=== PATIENT | female | born 1995 | race Two or more races ===

== ENCOUNTER 2017-07-21 00:25 | Inpatient (IN) | payer BC ==
[2017-07-21 02:07] LABS: ADD UMIC NO; UR ASCORBIC ACID NEGATIVE (NEGATIVE); UR BILIRUBIN (Dip) NEGATIVE (NEGATIVE); UR BLOOD (Dip) NEGATIVE (NEGATIVE); UR CLARITY CLEAR (CLEAR); UR COLOR YELLOW (YELLOW); UR GLUCOSE (Dip) NEGATIVE (NEGATIVE); UR KETONES (Dip) TRACE mg/dL (NEGATIVE); UR LEUKOCYTE ESTERASE (Dip) NEGATIVE Leu/ul (NEGATIVE); UR NITRITE (Dip) NEGATIVE (NEGATIVE); UR SPECIFIC GRAVITY (Dip) 1.017 (1.003-1.030); UR TOTAL PROTEIN (Dip) NEGATIVE (NEGATIVE); UR UROBILINOGEN (Dip) NEGATIVE (NEGATIVE)
[2017-07-21 02:50] LABS: RUPTURE FETAL MEMBRANES POSITIVE (NEGATIVE)
[2017-07-21 02:50] LABS: ADD MAN DIFF? NO
[2017-07-21 02:53] LABS: WHITE BLOOD COUNT 16.7 10^3/ul (4.8-10.8)
[2017-07-21 02:53] LABS: BASOPHILS % 0.2 % (0.0-2.0); EOSINOPHILS % 0.1 % (0.0-7.0); HEMATOCRIT 38.8 % (37.0-47.0); HEMOGLOBIN 13.7 g/dl (12.0-16.0); LYMPHOCYTES # 2.7 10^3/ul (0.8-2.9); LYMPHOCYTES % 16.2 % (15.0-51.0); MEAN CORPUSCULAR HEMOGLOBIN 32.9 pg (29.0-33.0); MEAN CORPUSCULAR HGB CONC 35.3 g/dl (32.0-37.0); MONOCYTES % 5.9 % (0.0-11.0); NEUTROPHIL # 12.9 10^3/ul (1.6-7.5); NEUTROPHILS % 77.2 % (39.0-77.0); PLATELET COUNT 237 10^3/UL (140-415); RED BLOOD COUNT 4.17 10^6/ul (4.20-5.40); RED CELL DISTRIBUTION WIDTH 13.4 % (11.5-14.5)
[2017-07-21] MEDS ORDERED: MISOPROSTOL 200 MCG TAB PR ×2 (03:00→12:30)
[2017-07-21] MEDS ORDERED: CARBOPROST 250 MCG INJ IM ×2 (03:00→12:30)
[2017-07-21] MEDS ORDERED: OXYTOCIN 30 UNITS/LR 500 ML IV ×3 (03:00→12:30)
[2017-07-21] MEDS ORDERED: METHYLERGONOVINE 0.2 MG INJ IM ×2 (03:00→12:30)
[2017-07-21 03:13] LABS: INR 0.89; PROTIME 12.1 Sec (11.9-14.9); PT RATIO 0.9
[2017-07-21 03:14] LABS: ALANINE AMINOTRANSFERASE 20 IU/L (13-69); ALBUMIN 4.1 g/dl (3.3-4.9); ALKALINE PHOSPHATASE 228 IU/L (42-121); ANION GAP 18 (8-16); ASPARTATE AMINO TRANSFERASE 19 IU/L (15-46); BILIRUBIN,INDIRECT 0.2 mg/dl (0-1.1); BILIRUBIN,TOTAL 0.2 mg/dl (0.2-1.3); BLOOD UREA NITROGEN 6 mg/dl (7-20); CALCIUM 9.6 mg/dl (8.4-10.2); CARBON DIOXIDE 20 mmol/L (21-31); CHLORIDE 108 mmol/L (97-110); CREATININE 0.57 mg/dl (0.44-1.00); GLUCOSE 95 mg/dl (70-220); PARTIAL THROMBOPLASTIN TIME 25.2 Sec (25.0-35.0); SODIUM 142 mmol/L (135-144); TOTAL PROTEIN 7.5 g/dl (6.1-8.1); URIC ACID 6.4 mg/dl (3.1-7.9)
[2017-07-21 03:49] LABS: AMPHETAMINE/METHAMPHETAMINE NEGATIVE (NEGATIVE); BARBITURATES NEGATIVE (NEGATIVE); BENZODIAZEPINES NEGATIVE (NEGATIVE); CANNABINOIDS NEGATIVE (NEGATIVE); COCAINE NEGATIVE (NEGATIVE); OPIATES NEGATIVE (NEGATIVE)
[2017-07-21] MEDS: LACTATED RINGER'S 1,000 ML IV ×4 (03:54→23:38)
[2017-07-21 04:02] LABS: HEPATITIS B SURFACE ANTIGEN NEGATIVE (NEGATIVE)
[2017-07-21] MEDS: BUTORPHANOL 2 MG INJ IV ×2 (04:29→07:45)
[2017-07-21] MEDS: BETAMET NA PHOS/AC(6 MG/ML) 5ML INJ IM (04:30)
[2017-07-21] MEDS: AMPICILLIN 1 GM/NS (PMX) 50 ML IVPB ×2 (04:40→06:00)
[2017-07-21] MEDS ORDERED: AMPICILLIN 1 GM/NS (PMX) 50 ML IVPB (06:00)
[2017-07-21] MEDS: ERYTHROMYCIN BASE (EC) 250 MG TAB PO (06:00)
[2017-07-21] MEDS: SENNA/DOCUSATE NA (8.6MG/50MG) TAB PO (07:45)
[2017-07-21] MEDS ORDERED: CITRIC ACID/SODIUM CITRATE 15 ML CUP (07:45)
[2017-07-21] MEDS ORDERED: METOCLOPRAMIDE 10 MG INJ (07:46)
[2017-07-21] MEDS ORDERED: FAMOTIDINE 20 MG INJ (07:46)
[2017-07-21] MEDS: FAMOTIDINE 20 MG INJ IV (07:47)
[2017-07-21] MEDS: CITRIC ACID/SODIUM CITRATE 15 ML CUP PO (07:48)
[2017-07-21] MEDS: METOCLOPRAMIDE 10 MG INJ IV (07:49)
[2017-07-21] MEDS ORDERED: BUPIVACAINE 0.75%/DEXT (SPINAL) 2 ML INJ (07:52)
[2017-07-21] MEDS ORDERED: FENTAnyl 50 MCG/ML VIAL (07:52)
[2017-07-21] MEDS ORDERED: morphine SULFATE/PF (10 MG/10 ML) INJ (07:53)
[2017-07-21] MEDS ORDERED: PROCHLORPERAZINE 10 MG INJ IV (08:00)
[2017-07-21] MEDS ORDERED: MEPERIDINE 25 MG INJ IV (08:00)
[2017-07-21] MEDS ORDERED: ONDANSETRON 4 MG INJ IV ×2 (08:00→12:30)
[2017-07-21] MEDS ORDERED: HYDROmorphONE (0.2 MG/ML) 10ML SYG IV (08:00)
[2017-07-21] MEDS ORDERED: DIPHENHYDRAMINE 50 MG INJ IV ×2 (08:00→12:30)
[2017-07-21] MEDS ORDERED: FENTAnyl 50 MCG/ML VIAL IV (08:00)
[2017-07-21] MEDS ORDERED: PHENYLephrine (100 MCG/ML) 5ML SYG (08:12)
[2017-07-21] MEDS ORDERED: ONDANSETRON 4 MG INJ (08:24)
[2017-07-21] MEDS: OXYTOCIN 30 UNITS/LR 500 ML IV ×2 (09:28→13:26)
[2017-07-21] MEDS: CEFAZOLIN 2 GM/50 ML (PMX) 50 ML IV (09:42)
[2017-07-21] MEDS: KETOROLAC 30 MG INJ IV ×2 (10:51→19:29)
[2017-07-21] MEDS ORDERED: HYDROmorphONE 0.5 MG/0.5 ML SYG IV ×2 (12:30)
[2017-07-21] MEDS ORDERED: ZOLPIDEM 5 MG TAB PO (12:30)
[2017-07-21] MEDS ORDERED: LANOLIN 7 GM TUBE TOP (12:30)
[2017-07-21] MEDS ORDERED: NALOXONE (0.4 MG/ML) INJ IV (12:30)
[2017-07-21 23:15] LABS: RAPID PLASMA REAGIN NONREACTIVE (NR)
[2017-07-22] MEDS: KETOROLAC 30 MG INJ IV (01:47)
[2017-07-22] MEDS: OXYCODONE/ACETAMINOPHEN (5/325) TAB PO ×4 (08:11→22:08)
[2017-07-22 09:42] LABS: ADD MAN DIFF? NO
[2017-07-22 09:48] LABS: BASOPHILS % 0.2 % (0.0-2.0); EOSINOPHILS % 0.3 % (0.0-7.0); HEMATOCRIT 34.2 % (37.0-47.0); HEMOGLOBIN 11.8 g/dl (12.0-16.0); LYMPHOCYTES # 2.4 10^3/ul (0.8-2.9); LYMPHOCYTES % 19.9 % (15.0-51.0); MEAN CORPUSCULAR HGB CONC 34.5 g/dl (32.0-37.0); MEAN CORPUSCULAR VOLUME 95.5 fl (82.0-101.0); MEAN PLATELET VOLUME 11.7 fl (7.4-10.4); MONOCYTE # 0.8 10^3/ul (0.3-0.9); MONOCYTES % 6.7 % (0.0-11.0); NEUTROPHIL # 8.9 10^3/ul (1.6-7.5); NEUTROPHILS % 72.5 % (39.0-77.0); PLATELET COUNT 189 10^3/UL (140-415); RED BLOOD COUNT 3.58 10^6/ul (4.20-5.40); RED CELL DISTRIBUTION WIDTH 13.5 % (11.5-14.5)
[2017-07-22 09:48] LABS: WHITE BLOOD COUNT 12.3 10^3/ul (4.8-10.8)
[2017-07-22] MEDS: SENNA/DOCUSATE NA (8.6MG/50MG) TAB PO ×2 (11:08→20:58)
[2017-07-22] MEDS: IBUPROFEN 600 MG TAB PO ×2 (11:08→17:20)
[2017-07-23] MEDS: IBUPROFEN 600 MG TAB PO ×5 (00:03→23:56)
[2017-07-23] MEDS: OXYCODONE/ACETAMINOPHEN (5/325) TAB PO ×5 (03:16→23:55)
[2017-07-23] MEDS: SENNA/DOCUSATE NA (8.6MG/50MG) TAB PO ×2 (07:48→21:02)
[2017-07-24] MEDS: OXYCODONE/ACETAMINOPHEN (5/325) TAB PO ×2 (04:10→09:09)
[2017-07-24] MEDS: IBUPROFEN 600 MG TAB PO ×2 (06:49→11:42)
[2017-07-24] MEDS: SENNA/DOCUSATE NA (8.6MG/50MG) TAB PO (09:09)
[2017-07-24] MEDS: DIPHTH/TET/ACEL PERTUSS (ADULT) 0.5 ML VIAL IM* (11:44)
== END 2017-07-24 14:39 | disposition home or self-care (01) | DRG 765 ==
LOC: OBT 00:25 → L-D 00:25 → OBT 02:55 → L-D 02:55 → PP1 11:44
PROC: 10D00Z1 Extraction of Products of Conception, Low, Open Approach (ICD-10-PCS; principal; 2017-07-21)
DX: O42.913 Preterm premature rupture of membranes, unspecified as to length of time between rupture and onset of labor, third trimester (principal); Q79.3 Gastroschisis; O13.4 Gestational [pregnancy-induced] hypertension without significant proteinuria, complicating childbirth; O35.8XX0 Maternal care for other (suspected) fetal abnormality and damage, not applicable or unspecified; Z37.0 Single live birth; Z3A.35 35 weeks gestation of pregnancy
CPT/HCPCS: 76815; 76818; 80053; 80307; 81003; 84112; 84560; 85025; 85610; 85730; 86592; 86850; 86900; 86901; 87340; 90715; 94760; 99464